=== PATIENT | male | born 1995 | race Caucasian/White ===

== ENCOUNTER 2017-01-18 15:50 | Outpatient (CLI) ==
[2016-02-18 15:02] VITALS: BMI 22.5
--- NOTE | 2017-01-18 16:27 | DI ---
EXAM: Two-view chest. HISTORY: Cough. DATE: 01/18/2017 COMPARISON: Radiograph of the chest obtained on 12/10/2011. TECHNIQUE: PA and lateral views of the chest were obtained. FINDINGS: No focal consolidation, pleural effusion, or pneumothorax is identified. The heart size is normal. There is no mediastinal widening. Mild pectus excavatum is present. The osseous struct ures are otherwise unremarkable. IMPRESSION: No acute cardiopulmonary findings.
== END 2017-01-18 15:51 | disposition home or self-care (01) ==
LOC: RAD 15:50
PROVIDERS: ATTEND Family Medicine
DX: R05 Cough (principal)

== ENCOUNTER 2017-12-12 15:29 | Emergency (ER) ==
[2017-12-12 15:34] VITALS: BP 136/77; TEMP 98.5; BMI 22.9
[2017-12-12] MEDS ORDERED: PHENERGAN 25 MG/ML VIAL IM STA (15:39)
[2017-12-12] MEDS ORDERED: VALIUM SYRINGE IM STA (15:39)
[2017-12-12] MEDS ORDERED: MORPHINE 2 MG/ML SYRINGE IM STA (15:39)
--- NOTE | 2017-12-12 15:59 | DI ---
Exam: Four x-rays of the left shoulder. Comparison: Chest x-ray performed 01/18/2017. Reason for exam: Left shoulder injury. FINDINGS: The left humeral head is disarticulated from the bony glenoid. No obvious fracture is see n. The clavicle is intact. The partially imaged scapular Y-view appears grossly unremarkable althou gh evaluation is limited by summation. Impression: Left shoulder dislocation without evidence of fracture. Report faxed at [phone] hours on 12/12/2017.
--- NOTE | 2017-12-12 16:30 | ED.PDOC ---
General ED Provider: Dr. VICTOR MANUEL HOUSER-ER Chief Complaint: Extremity Pain/Injury Stated Complaint: i fell on my shoulder--its dislocated i think Time Seen by Physician: 16:28 Mode of Arrival: Walk-In Information Source: Patient, Family Exam Limitations: No limitations Primary Care Provider: VICTOR MANUEL HOUSER Nursing and Triage Documentation Reviewed and Agree: Yes Reviewed sepsis parameters & appropriate labs ordered?: Yes System Inflammatory Response Syndrome: Not Applicable Sepsis Protocol: For patient's 13 years and over: Temp is 96.8 and below OR 101 and greater Pulse >90 BPM Resp >20/minute Acutely Altered Mental Status Are patient's symptoms suggestive of a new infection, such as: -Pneumonia -Skin, Soft Tissue -Endocarditis -UTI -Bone, Joint Infection -Implantable Device -Acute Abdominal Infection -Wound Infection -Meningitis -Blood Stream Catheter Infection -Unknown Musculoskeletal Complaint Exam - Shoulder Pain Complaint/Exam Mechanism of Injury: Reports: Trauma Onset/Duration: one hour Symptoms Are: Still present Timing: Constant Initial Severity: Mild Current Severity: Moderate Location: Reports: Discrete (left shoulder) Character: Reports: Dull, Aching, Spasmodic Aggravating: Reports: Movement, Lifting, Flexion, Extension, Internal rotation, External rotation, Abduction Associated Signs and Symptoms: Denies: Swelling, Redness, Bruising, Fever, Weakness, Numbness, Tingling Shoulder Findings: Present: Swelling, Ecchymosis Limited Range of Motion: Present: External rotation, Rotator cuff insertion Differential Diagnoses: Dislocation, Rotator Cuff Injury Review of Systems - Review Of Systems Constitutional: Reports: No symptoms Eyes: Reports: No symptoms Ears, Nose, Mouth, Throat: Reports: No symptoms Respiratory: Reports: No symptoms Cardiac: Reports: No symptoms GI: Reports: No symptoms : Reports: No symptoms Musculoskeletal: Reports: Joint pain, Joint swelling Skin: Reports: No symptoms Neurological: Reports: No symptoms Endocrine: Reports: No symptoms Hematologic/Lymphatic: Reports: No symptoms All Other Systems: Reviewed and Negative Past Medical History - Past Medical History Previously Healthy: Yes Endocrine: Reports: None Cardiovascular: Reports: None Respiratory: Reports: None Hematological: Reports: None Gastrointestinal: Reports: None Genitourinary: Reports: None Neuro/Psych: Reports: None Musculoskeletal: Reports: None Cancer: Reports: None - Surgical History General Surgical History: Reports: Other (TUBES IN HIS EARS. WISDOM TEETH.) - Family History Family History: Reports: None - Social History Smoking Status: Never smoker Hx Substance Use: No Alcohol Screening: None Lives: With family Physical Exam - Physical Exam Appearance: Well-appearing, No pain distress, Well-nourished Eyes: CHLOE, EOMI, Conjunctiva clear ENT: Ears normal, Nose normal, Oropharynx normal Neck: Supple Respiratory: Airway patent, Breath sounds clear, Breath sounds equal, Respirations nonlabored Cardiovascular: RRR, Pulses normal, No rub, No murmur GI/: Soft, Nontender, No masses, Bowel sounds normal, No Organomegaly Musculoskeletal: Limited ROM, Limited strength Skin: Warm Neurological: Sensation intact, Motor intact, Reflexes intact, Cranial nerves intact, Alert, Oriented Psychiatric: Affect appropriate, Mood appropriate, Anxious Interpretation - Radiology Interpretation Radiology Interpretation By: Radiologist Radiology Results: Positive Procedures - Joint Reduction Indications: Present: Dislocation Joint Reduction Site: Shoulder (L) Conscious Sedation: Yes (morphine, valium and phenergan) Nerve Block Used: No Reduction Attempts: 1 (pramod technique with scapula manipulation) Pre-Procedure NV Exam: Yes Post Joint Reduction Film: Joint reduced Re-Evaluation - Re-Evaluation Time of Re-Evaluation: 16:31 Status: Improved Vital Signs Stable: Yes Pain Level: 1 Appearance: NAD Lungs: Clear Skin: Warm and Dry Neuro: Alert and Oriented X3 CV: RRR Critical Care Note - Critical Care Note Total Time (mins): 0 Course - Course Orders, Labs, Meds: Orders Category Date Time Status Shoulder immobilizer [ED SPLINT APPLICATION] .ONCE EMERGENCY 12/12/17 16:26 Active Diazepam Syringe [Valium Syringe] MEDS 12/12/17 15:39 Discontinued 5 mg IM ONCE STA Morphine Sulfate [Morphine 2 mg/ml Syringe] MEDS 12/12/17 15:39 Discontinued 4 mg IM ONCE STA Promethazine HCl [Phenergan 25 mg/ml Vial] MEDS 12/12/17 15:39 Discontinued 25 mg IM ONCE STA SHOULDER, LEFT MIN 2V Stat RADS 12/12/17 15:38 Completed SHOULDER, LEFT MIN 2V Stat RADS 12/12/17 16:17 Taken Medications Discontinued Medications Generic Name Dose Route Start Last Admin Trade Name Freq PRN Reason Stop Dose Admin Diazepam 5 mg 12/12/17 15:39 12/12/17 16:05 Valium Syringe IM 12/12/17 15:40 5 mg ONCE STA Administration Morphine Sulfate 4 mg 12/12/17 15:39 12/12/17 16:05 Morphine 2 Mg/Ml Syringe IM 12/12/17 15:40 4 mg ONCE STA Administration Promethazine HCl 25 mg 12/12/17 15:39 12/12/17 16:05 Phenergan 25 Mg/Ml Vial IM 12/12/17 15:40 25 mg ONCE STA Administration Vital Signs: Temp Pulse Resp BP Pulse Ox 12/12/17 15:29 98.5 F 91 H 20 136/77 97 Departure - Departure Time of Disposition: 16:31 Disposition: HOME SELF-CARE Discharge Problem: Anterior shoulder dislocation Qualifiers: Encounter type: initial encounter Laterality: left Qualified Code(s): S43.015A - Anterior dislocation of left humerus, initial encounter Instructions: Shoulder Dislocation (ED) Condition: Good Pt referred to PMD for follow-up: Yes IPMP verified?: No Additional Instructions: stay in immobilizer--norco 7.5mg q 4hrs prn pain #15--call my office tomorrow to arrange appt wtih dr thompson in follow up Allergies/Adverse Reactions: Allergies No Known Allergies Allergy (Verified 12/12/17 15:35) Home Medications: Ambulatory Orders Pantoprazole Sodium [Protonix] 20 mg PO DAILY 12/12/17 Disposition Discussed With: Patient, Family
--- NOTE | 2017-12-12 16:39 | DI ---
EXAM: Three views of the left shoulder HISTORY: Post reduction. COMPARISON: The same day shoulder x-rays FINDINGS: There is no displaced fracture. The previous dislocation has been reduced with humeral hea d articulate normally with the glenoid fossa. The adjacent soft tissues and osseous structures are u nremarkable. IMPRESSION: Reduction of previous left shoulder dislocation with no visualized fracture.
== END 2017-12-12 16:49 | disposition home or self-care (01) ==
LOC: ED 15:29
DX: S43.015A Anterior dislocation of left humerus, initial encounter (principal); W19.XXXA Unspecified fall, initial encounter
CPT/HCPCS: 96372; 99283

== ENCOUNTER 2018-04-27 13:55 | Emergency (ER) ==
[2018-04-27 13:59] VITALS: BP 117/67; TEMP 97.5; BMI 22.4
--- NOTE | 2018-04-27 14:37 | ED.PDOC ---
General ED Provider: Dr. JUANIS COLEMAN Chief Complaint: Back Pain Stated Complaint: Upper right back pain; worsening today Time Seen by Physician: 14:25 Mode of Arrival: Walk-In Information Source: Patient, Family Exam Limitations: No limitations Primary Care Provider: VICTOR MANUEL HOUSER Nursing and Triage Documentation Reviewed and Agree: Yes Does patient meet sepsis criteria?: No System Inflammatory Response Syndrome: Not Applicable Sepsis Protocol: For patient's 13 years and over: Temp is 96.8 and below OR 101 and greater Pulse >90 BPM Resp >20/minute Acutely Altered Mental Status Are patient's symptoms suggestive of a new infection, such as: -Pneumonia -Skin, Soft Tissue -Endocarditis -UTI -Bone, Joint Infection -Implantable Device -Acute Abdominal Infection -Wound Infection -Meningitis -Blood Stream Catheter Infection -Unknown Musculoskeletal Complaint Exam - Back Pain Complaint/Exam Mechanism of Injury: Reports: No known trauma Onset/Duration: Noted this morning; was not present yesterday Symptoms Are: Worse (Left work because of pain worsening) Initial Severity: Moderate 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) Character: Reports: Sharp Aggravating: Reports: Movements Alleviating: Reports: Rest Associated Signs and Symptoms: Denies: Swelling, Redness, Bruising, Fever, Weakness, Numbness, Tingling, Abdominal pain, Flank pain, Bladder incontinence, Bowel incontinence, Weight loss, Pain with weight bearing Review of Systems - Review Of Systems Constitutional: Reports: No symptoms Respiratory: Reports: No symptoms Musculoskeletal: Reports: Back pain (Right upper; medial aspect R scapula) Skin: Reports: No symptoms All Other Systems: Reviewed and Negative Past Medical History - Past Medical History Previously Healthy: Yes Endocrine: Reports: None Cardiovascular: Reports: None Respiratory: Reports: None Hematological: Reports: None Gastrointestinal: Reports: None Genitourinary: Reports: None Neuro/Psych: Reports: None Musculoskeletal: Reports: None Cancer: Reports: None - Surgical History General Surgical History: Reports: Other (TUBES IN HIS EARS. WISDOM TEETH.) - Family History Family History: Reports: None - Social History Smoking Status: Never smoker Hx Substance Use: No Alcohol Screening: None Physical Exam - Physical Exam Appearance: Well-appearing Pain Distress: Moderate Respiratory: Airway patent, Breath sounds clear, Breath sounds equal, Respirations nonlabored Cardiovascular: RRR Musculoskeletal: Normal strength, ROM intact Skin: Warm, Dry, Normal color Neurological: Sensation intact, Motor intact, Alert, Oriented Psychiatric: Affect appropriate, Mood appropriate Critical Care Note - Critical Care Note Total Time (mins): 10 Course - Course Orders, Labs, Meds: Orders Category Date Time Status CHEST, 2 VIEWS PA & LAT Stat RADS 04/27/18 14:33 Completed Vital Signs: Temp Pulse Resp BP Pulse Ox 04/27/18 13:56 97.5 F L 58 L 18 117/67 98 Departure - Departure Time of Disposition: 15:37 Disposition: HOME SELF-CARE Discharge Problem: Strain of back Qualifiers: Encounter type: initial encounter Qualified Code(s): S39.012A - Strain of muscle, fascia and tendon of lower back, initial encounter Instructions: Thoracic Back Strain (ED) Condition: Stable Pt referred to PMD for follow-up: Yes (Call for appointment) IPMP verified?: Yes (One script [place] 12/26 limited #) Additional Instructions: Take pain medication and muscle relaxant as prescribed. Follow up with primary care as needed. Prescriptions: Hydrocodone Bit/Acetaminophen [[place] 7.5-325] 1 tab PO Q6HR PRN #12 tablet PRN Reason: pain Methocarbamol [Robaxin] 1 - 2 tab PO Q6HR PRN #20 tablet PRN Reason: Spasms Allergies/Adverse Reactions: Allergies No Known Allergies Allergy (Verified 04/27/18 13:59) Home Medications: Ambulatory Orders Pantoprazole Sodium [Protonix] 20 mg PO DAILY 12/12/17 Hydrocodone Bit/Acetaminophen [[place] 7.5-325] 1 tab PO Q6HR PRN #12 tablet 04/27 Methocarbamol [Robaxin] 1 - 2 tab PO Q6HR PRN #20 tablet 04/27/18 Disposition Discussed With: Patient, Family
--- NOTE | 2018-04-27 14:56 | DI ---
EXAM: Two views of the chest. History: Chest pain. Comparison: Chest radiograph 01/18/2017 Findings: Heart size is normal. No focal consolidation. No appreciable pleural fluid and no pneumo thorax. No acute osseous abnormalities. Impression: No acute cardiopulmonary process.
== END 2018-04-27 15:54 | disposition home or self-care (01) ==
LOC: ED 13:55
DX: S29.012A Strain of muscle and tendon of back wall of thorax, initial encounter (principal); X50.1XXA Overexertion from prolonged static or awkward postures, initial encounter
CPT/HCPCS: 99282